=== PATIENT | male | born 1950 | race Two or more races ===

== ENCOUNTER 2020-05-14 14:43 | Inpatient (IN) | payer MEDICARE ==
[~2020-05-14] VITALS: Ht 170.2 cm; Wt 61.7 kg
--- NOTE | 2020-05-14 15:12 | NUR ---
BIB RA FROM HOME,SYNCOPAL EPISODE,WEAKNESS AND (+) ORTHO, FAMILY MEMBERS ARE (+) FOR COVID 19. TO ER BED 16. PLACED IN ISOLATION. PROVIDED W SURGICAL MASK. CHANGED TO HOSP GOWN, HOOKED TO HAT BODY SORTER, BP CUFF AND POX. NOTED TACHY AND LOW BP. NOTED W RAC 18G IVP, PATENT AND FLUSHING. ONGOING 500ML NS HOOKED BY PARAMEDICS. WARM BLANKET PROVIDED. DR FERRARO AT BEDSIDE
[2020-05-14] MEDS ORDERED: IV NS 0.9% 1,000 ML BAG IV ONE ×2 (15:30→17:00)
--- NOTE | 2020-05-14 15:30 | NUR ---
MOVE SHEET SUBMITTED
[2020-05-14 15:54] LABS: BASOPHILS # (AUTO) 0.2 /CMM (0.0-0.2); BASOPHILS % (AUTO) 1.2 % (0.0-2.0); EOSINOPHILS % (AUTO) 0.3 % (0.0-6.0); HEMATOCRIT 40 % (39-51); HEMOGLOBIN 12.6 g/dL (13.5-17.5); LYMPHOCYTES # (AUTO) 0.6 /CMM (0.8-4.8); MEAN CORPUSCULAR HGB CONC 32 g/dl (31.0-36.0); MEAN CORPUSCULAR VOLUME 95 fL (80-96); MONOCYTES # (AUTO) 0.9 /CMM (0.1-1.30); NEUTROPHILS # (AUTO) 10.8 /CMM (1.8-8.9); NEUTROPHILS % (AUTO) 86.5 % (43.0-81.0); PLATELET COUNT (AUTO) 152 /CMM (150-450); RED BLOOD CELL COUNT(AUTO) 4.19 MIL/uL (4.5-6.0); WHITE BLOOD COUNT (AUTO) 12.5 K/uL (4.3-11.0)
[2020-05-14] MEDS ORDERED: CEFTRIAXONE 1GM BAG (ER ONLY) 50 ML IV ONE ×2 (16:30→16:31)
[2020-05-14] MEDS ORDERED: AZITHROMYCIN 500 MG in IV D5W 250 ML IV ONE (16:30)
[2020-05-14] MEDS ORDERED: DEXAMETHASONE SOD PHOSPHATE 10 MG/ML VIAL IV ONE (16:30)
[2020-05-14] MEDS ORDERED: DEXAMETHASONE SOD PHOSPHATE 10 MG/ML VIAL ONE (16:31)
--- NOTE | 2020-05-14 16:44 | NUR ---
COVID 19 SWAB (RAPID AND PCR) DONE AND SENT TO LAB
--- NOTE | 2020-05-14 16:49 | NUR ---
RAPID INFLUENZA SWAB DONE AND SENT TO LAB
[2020-05-14 16:52] LABS: ALANINE AMINOTRANSFERASE 24 U/L (12-78); ALBUMIN 3.2 g/dL (3.4-5.0); ALKALINE PHOSPHATASE 65 U/L (46-116); ASPARTATE AMINOTRANSFERASE 35 U/L (15-37); B-TYPE NATRIURETIC PEPTIDE 165 PG/ML (0-125); BILIRUBIN,TOTAL 0.6 mg/dL (0.2-1.0); CALCIUM, SERUM 9.5 mg/dL (8.5-10.1); CARBON DIOXIDE 19 mmol/L (21-32); CHLORIDE 106 mmol/L (98-107); CREATININE 2.6 mg/dL (0.6-1.3); GLUCOSE 305 mg/dL (74-106); POTASSIUM 3.7 mmol/L (3.5-5.1); SODIUM SERUM 147 mmol/L (136-145); TOTAL PROTEIN, SERUM 7.5 g/dL (6.4-8.2); UREA NITROGEN, BLOOD 23 mg/dL (7-18)
[2020-05-14] MEDS ORDERED: HEPARIN SODIUM, PORCINE 5000 UNITS/1 ML VIAL SQ SCH (17:30)
[2020-05-14] MEDS ORDERED: IV 1/2NS 1000 ML 1,000 ML IV PRN ×2 (17:30→19:17)
[2020-05-14] MEDS ORDERED: ACETAMINOPHEN 325 MG TABLET PO PRN (17:30)
[2020-05-14] MEDS ORDERED: ASPIRIN 325 MG TABLET PO ONE (17:30)
[2020-05-14] MEDS ORDERED: HYDROCODONE/APAP 5/325MG TABLET PO PRN (17:30)
[2020-05-14] MEDS ORDERED: ALBUTEROL SULFATE INH 18 GM HFA.AER.AD IH PRN (17:30)
[2020-05-14] MEDS ORDERED: ONDANSETRON HCL/PF 4 MG/2 ML VIAL IVP PRN (17:30)
[2020-05-14] MEDS ORDERED: MORPHINE SULFATE INJ 2 MG/ML DISP.SYRIN IV PRN (17:30)
[2020-05-14] MEDS ORDERED: MAG HYDROX/AL HYDROX/SIMETH 30 ML UDC PO PRN (17:30)
--- NOTE | 2020-05-14 18:59 | NUR ---
CALLED LAB PT COVID RESULT (+) POSITIVE.
[2020-05-14 19:13] LABS: C-REACTIVE PROTEIN 5.7 mg/dL (0.0-0.9); CREATINE KINASE, TOTAL 342 U/L (39-308)
[2020-05-14 20:00] LABS: BILIRUBIN,DIRECT 0.1 mg/dL (0.0-0.2)
--- NOTE | 2020-05-14 20:25 | NUR ---
PARMINDERROLAN IBARRA - DAUGHTER [phone]
[2020-05-14 20:34] LABS: FERRITIN 1678 ng/mL (8-388)
--- NOTE | 2020-05-14 20:56 | NUR ---
PATIENT IS CURRENTLY ON 4L OF N/C 99% 02 SATURATION. PATIENT IS AAOX4. NO SOB. BREATHING EVENLY AND UNLABORED. PATIENT STATES ," AGUA OR JUICE POR FAVOR".
--- NOTE | 2020-05-14 22:48 | NUR ---
TELE 205-1
--- NOTE | 2020-05-14 23:32 | NUR ---
REPORT GIVEN TO JUSTINE ALICEA FOR GABRIELA.
[2020-05-15] VITALS (33 sets, daily range): BP systolic 32–144; BP diastolic 17–88
--- NOTE | 2020-05-15 | NUR ---
PT ARRIVED TO THE UNIT VIA EDMARRCAROL, A/O X4, PT IS ON 2 L NC SATING 97%, PT HAS UNLABORED BREATHING SAFETY MEASURE IN PLACE.
--- NOTE | 2020-05-15 00:08 | NUR ---
PATIENT TAKEN UP TO ROOM FOR GABRIELA.
[2020-05-15] MEDS: HEPARIN SODIUM, PORCINE 5000 UNITS/1 ML VIAL SQ SCH ×2 (01:44→14:01)
--- NOTE | 2020-05-15 05:48 | NUR ---
received d dimer lab result which is greater than 35.20, dr Collado made aware no order at this time.
--- NOTE | 2020-05-15 07:30 | NUR ---
pt remained stable during my shift,no acute changes report given to incoming nurse for tashi.
--- NOTE | 2020-05-15 07:30 | NUR ---
TELE/RN OPENING NOTE Patient resting in bed, A&O x 4, Malagasy speaking. No complaints of pain/discomfort at this time. Breathing even and non-labored on RA, no SOB noted. No cardiac distress noted. On tele monitor reading, ST 122. IV access noted on LFA #20 g, patent and intact, and flushing well. Sensation from all peripheral extremities intact. Bed locked to its lowest position, side rails x 2 up, call light in hand. Will continue with current medical management.
[2020-05-15 08:27] LABS: BASOPHILS % (AUTO) 0.1 % (0.0-2.0); HEMATOCRIT 34 % (39-51); HEMOGLOBIN 11.4 g/dL (13.5-17.5); LYMPHOCYTES # (AUTO) 0.6 /CMM (0.8-4.8); LYMPHOCYTES % (AUTO) 6.8 % (20.0-44.0); MEAN CORPUSCULAR HGB CONC 34 g/dl (31.0-36.0); MEAN CORPUSCULAR VOLUME 89 fL (80-96); MONOCYTES # (AUTO) 0.7 /CMM (0.1-1.30); MONOCYTES % (AUTO) 7.9 % (2.0-12.0); NEUTROPHILS # (AUTO) 7.9 /CMM (1.8-8.9); NEUTROPHILS % (AUTO) 85.2 % (43.0-81.0); PLATELET COUNT (AUTO) 127 /CMM (150-450); WHITE BLOOD COUNT (AUTO) 9.2 K/uL (4.3-11.0)
[2020-05-15 09:05] LABS: THYROID STIMULATING HORMONE 0.623 uIU/mL (0.358-3.74)
--- NOTE | 2020-05-15 10:04 | NUR ---
TELE/RN NOTE Patient complaining of generalized body pain, yells "03/09 susan lyon." When asked what type of pain he is having, patient unable to describe, states "susan davis duele, pain medication please!" Patient manifests facial grimacing, guarding. Administered morphine 1 mg IV push.
--- NOTE | 2020-05-15 10:30 | NUR ---
TELE/RN NOTE Patient is dozing intermittently, asked if patient still has pain, patient states "no." Easily arousable to touch and verbal stimulation. Will continue to monitor patient's progression of pain.
--- NOTE | 2020-05-15 10:45 | NUR ---
TELE/RN NOTE Patient found unresponsive with palpable weak pulses, unable to respond to touch and verbal stimulation. VS taken: 144/78, HR 77, RR 10, O2 saturation 62% on RA, on tele monitor reading sinus rhythm 77. BS 127. Placed patient on non-rebreather on 15L oxygen and called rapid response. Patient is full code. Madi Thomas, and Jaleel (respiratory therapists), [facility] INDUSTRIAL SERVICE TECHNICIAN, and Nakul Lyons, HELMET HAT SWEATBAND PUNCHER arrived at 1048 to assess patient. Nakul Lyons HELMET HAT SWEATBAND PUNCHER ordered to intubate patient. Dr. Sharee Almanza arrived at 1100 for intubation, propofol in at 1110, intubation process started at 1113. During intubation, patient seizes for 5 seconds manifested with jerking movements on the arms and legs. Administered lorazepam 2mg IV as ordered by Nakul Lyons NP. Patient placed on ventilator, and transferred safely for CT head. Addendum: 05/15/20 at 1545 by CHAZ WEEKS RN No family/relative known on the face sheet. Unable to notify. Addendum: 05/15/20 at 1548 by CHAZ WEEKS RN In addition to above, patient's saturation went up to 90% upon ventilation.
[2020-05-15] MEDS ORDERED: LORAZEPAM INJ 2 MG/ML VIAL IV STA (11:10)
[2020-05-15] MEDS ORDERED: LORAZEPAM INJ 2 MG/ML VIAL IV PRN (11:30)
[2020-05-15] MEDS ORDERED: PROPOFOL 100 ML IV PRN (11:30)
--- NOTE | 2020-05-15 12:15 | NUR ---
CHANGE NUMBER OPERATOR RECEIVED PT FROM MS2 AFTER CT SCAN. PT TRANSPORTED BY BED WITH MONITOR. REPORT RECEIVED FROM MS2 RN. NEW IV SITES STARTED IN BLE. F/C PLACED WITH NO URINE OUTPUT SEEN. NGT PLACED, POSITION VERIFIED BY AUSCULTATION AND ASPIRATION OF GASTRIC CONTENTS WITH SYRINGE. ETT TUBE ADJUSTED BY RT. 7.5F ETT NOW AT 22 AT THE LIP. WILL DRAW FOLLOW UP ABG.
--- NOTE | 2020-05-15 12:30 | NUR ---
TELE/RN NOTE Patient safely transferred to ICU ROOM 265, gave report to NIXON Guardado for GABRIELA.
--- NOTE | 2020-05-15 12:45 | NUR ---
RT NOTE rapi response called into patient room. patient intubated by dr. sawyer. ett 7.5 @ 26cm then adjusted to 22cm per dr. bro. ett secured and in place. vent alarms on and audible. vent plugged in red outlet. will continue to monitor. abg pending
[2020-05-15] MEDS ORDERED: PROPOFOL 200 MG/20 ML VIAL IV ONE (13:12)
[2020-05-15 13:28] LABS: ALBUMIN 3.2 g/dL (3.4-5.0); BILIRUBIN,TOTAL 0.3 mg/dL (0.2-1.0); CREATININE 3.1 mg/dL (0.6-1.3); MAGNESIUM 2.6 mg/dL (1.8-2.4); PHOSPHORUS 4.9 mg/dL (2.5-4.9); POTASSIUM 5.8 mmol/L (3.5-5.1); TOTAL PROTEIN, SERUM 6.9 g/dL (6.4-8.2)
[2020-05-15] MEDS ORDERED: IV D5/ 0.9% NACL 1,000 ML IV PRN (13:30)
[2020-05-15] MEDS: NOREPINEPHRINE 8 MG in IV NS 0.9% 242 ML IV PRN ×2 (13:46→20:59)
[2020-05-15] MEDS ORDERED: IV NS 0.9% 500 ML BAG IV ONE (14:00)
[2020-05-15 15:13] LABS: ABG BASE EXCESS -25.5 mmol/L; ABG OXYGEN SATURATION 99.5 % (92.0-98.5); ABG PCO2 23.2 mmHg (35.0-45.0); ABG PH 6.954 (7.350-7.450); ABG PO2 486.9 mmHg (75.0-100.0); AaDO2 202.9 mmHg; COHb 0.2 % (0.5-1.5); MetHb 0.3 % (0.0-1.5); SITE, ABG Right Femoral; VENT MODE, BG AC 20 500 100%
[2020-05-15] MEDS ORDERED: SODIUM BICARBONATE SYR 50 MEQ/50 ML DISP.SYRIN IV ONE (15:30)
[2020-05-15] MEDS: HYDROCORTISONE SOD SUCCINATE 100 MG/2 ML VIAL IV SCH ×2 (16:20→20:15)
[2020-05-15] MEDS ORDERED: AZITHROMYCIN 500 MG in IV D5W 250 ML IV SCH (16:30)
[2020-05-15] MEDS ORDERED: DEXAMETHASONE SOD PHOSPHATE 10 MG/ML VIAL IV SCH (16:30)
[2020-05-15] MEDS ORDERED: CEFTRIAXONE 1 G in IV D5W 50 ML IV SCH (17:00)
[2020-05-15] MEDS: Sodium Bicarbonate 150 MEQ in IV D5W 1,000 ML IV PRN (17:35)
[2020-05-15] MEDS: PHENYLEPHRINE 50 MG in IV NS 0.9% 245 ML IV PRN (18:22)
--- NOTE | 2020-05-15 19:30 | NUR ---
RN NOTES RECEIVED PATIENT IN BED INTUBATED VENT, VENT SETTING TOLERATING WELL ORDERED. TELE MONITOR READING SR/ST. RESPIRATION EVEN. IV SITES INTACT PATENT FLUSHED WELL. NGT TUBE IN PLACE, VERIFIED VIA AUSCULTATION. F/C INTACT NO URINE OUT PUT NOTED. SAFETY MEASURES IN PLACE, SIDE RAILS UP CALL LIGHT WITHIN REACH. WILL CONT TO MONITOR FOR GABRIELA.
[2020-05-15 20:21] LABS: ABG BASE EXCESS -20.9 mmol/L; ABG OXYGEN SATURATION 98.5 % (92.0-98.5); ABG PH 7.119 (7.350-7.450); ABG PO2 151.1 mmHg (75.0-100.0); AaDO2 181.8 mmHg; COHb 0.3 % (0.5-1.5); MetHb 0.3 % (0.0-1.5); O2Hb 97.9 % (94.0-97.0); SITE, ABG Right Brachial; VENT MODE, BG AC 20 500 50% +0
--- NOTE | 2020-05-15 20:33 | NUR ---
ALLISON'S DONE RELAYED TO DR. LOBO NNO. WILL CONT TO MONITOR.
--- NOTE | 2020-05-15 22:04 | NUR ---
RECEIVED CALL FROM LAB TALKED TO VEENCE REGARDING TROPONIN LEVEL 1.970, RELAYED TO DR. ROMY NOVAK. WILL CONT TO MONITOR.
[2020-05-15 23:38] LABS: ALBUMIN 2.5 g/dL (3.4-5.0); BILIRUBIN,TOTAL 0.7 mg/dL (0.2-1.0); CALCIUM, SERUM 8.2 mg/dL (8.5-10.1); CREATININE 5.1 mg/dL (0.6-1.3); MAGNESIUM 3.9 mg/dL (1.8-2.4); TOTAL PROTEIN, SERUM 6.1 g/dL (6.4-8.2)
[2020-05-15] MEDS ORDERED: VASOPRESSIN INJ 20 UNIT/ML VIAL ONE (23:46)
--- NOTE | 2020-05-15 23:46 | NUR ---
RECEIVED CALL FROM LAB TALKED TO BRI REGARDING K+ 6.7,CO2-9, PHOSPHORS-16.[address] STANTON NEW ORDER RECEIVED NOTED AND CARRIED OUT. WILL CON TO MONITOR.
[2020-05-16] VITALS (42 sets, daily range): BP systolic 45–226; BP diastolic 16–162
[2020-05-16 00:06] LABS: PHOSPHORUS 16.2 mg/dL (2.5-4.9); POTASSIUM 6.7 mmol/L (3.5-5.1)
[2020-05-16] MEDS: VASOPRESSIN INJ 40 UNIT in IV NS 0.9% 38 ML IV PRN ×2 (00:06→15:12)
[2020-05-16] MEDS ORDERED: SODIUM BICARBONATE SYR 50 MEQ/50 ML DISP.SYRIN IV STA (00:11)
[2020-05-16] MEDS ORDERED: INSULIN REGULAR, HUMAN 100 UNIT/ML 3 ML VIAL IV STA (00:11)
[2020-05-16] MEDS ORDERED: NOREPINEPHRINE 4 MG/4 ML AMPUL IV ONE ×3 (00:15→05:47)
[2020-05-16] MEDS: NOREPINEPHRINE 8 MG in IV NS 0.9% 242 ML IV PRN ×3 (00:25→06:19)
[2020-05-16] MEDS: PHENYLEPHRINE 50 MG in IV NS 0.9% 245 ML IV PRN ×2 (01:17→05:24)
[2020-05-16] MEDS ORDERED: INSULIN REGULAR, HUMAN 100 UNIT/ML 3 ML VIAL ONE (01:40)
[2020-05-16] MEDS: Sodium Bicarbonate 150 MEQ in IV D5W 1,000 ML IV PRN ×2 (02:00→09:38)
[2020-05-16] MEDS: HEPARIN SODIUM, PORCINE 5000 UNITS/1 ML VIAL SQ SCH ×2 (02:02→14:00)
[2020-05-16 03:28] LABS: BASOPHILS # (AUTO) 0.5 /CMM (0.0-0.2); BASOPHILS % (AUTO) 2.1 % (0.0-2.0); EOSINOPHILS % (AUTO) 1.8 % (0.0-6.0); HEMATOCRIT 31 % (39-51); HEMOGLOBIN 9.3 g/dL (13.5-17.5); LYMPHOCYTES # (AUTO) 1.1 /CMM (0.8-4.8); LYMPHOCYTES % (AUTO) 4.5 % (20.0-44.0); MEAN CORPUSCULAR HGB CONC 30 g/dl (31.0-36.0); MEAN CORPUSCULAR VOLUME 98 fL (80-96); MONOCYTES # (AUTO) 0.4 /CMM (0.1-1.30); MONOCYTES % (AUTO) 1.7 % (2.0-12.0); NEUTROPHILS # (AUTO) 21.6 /CMM (1.8-8.9); NEUTROPHILS % (AUTO) 89.9 % (43.0-81.0); PLATELET COUNT (AUTO) 141 /CMM (150-450); RED BLOOD CELL COUNT(AUTO) 3.19 MIL/uL (4.5-6.0)
[2020-05-16 03:45] LABS: CALCIUM, SERUM 6.9 mg/dL (8.5-10.1); CREATININE 5.7 mg/dL (0.6-1.3); MAGNESIUM 3.7 mg/dL (1.8-2.4); POTASSIUM 5.7 mmol/L (3.5-5.1)
[2020-05-16 03:52] LABS: PHOSPHORUS 17.2 mg/dL (2.5-4.9)
--- NOTE | 2020-05-16 04:17 | NUR ---
RT NOTE Pt rec'd orally intubated via ETT 7.5 secured @ 22cm at the lipline. Pt on [facility] vent on AC mode settings as charted. Pt sx'd for thick small amt of pale yellow secretions. Alarms are set and audible. Ambu bag bedside. Vent plugged into red outlet. Will continue to monitor closely. Addendum: 05/16/20 at 0418 by JAREK WILDER RT Amended: Links added.
[2020-05-16] MEDS ORDERED: PHENYLEPHRINE 10 MG/ML VIAL ONE (05:07)
[2020-05-16 06:12] LABS: ABG BASE EXCESS -20.2 mmol/L; ABG OXYGEN SATURATION 98.6 % (92.0-98.5); ABG PCO2 19.9 mmHg (35.0-45.0); ABG PO2 163.1 mmHg (75.0-100.0); COHb 0.2 % (0.5-1.5); MetHb 0.1 % (0.0-1.5); O2Hb 98.3 % (94.0-97.0); SITE, ABG Right Radial; VENT MODE, BG AC 20 500 50%
--- NOTE | 2020-05-16 07:15 | NUR ---
STEAM AND POWER SUPERINTENDENT NOTES RECEIVED PATIENT UNRESPONSIVE , GAG / COUGHING REFLEX AND BOWEL SOUND ABSENT , ON VENT SETTINGS OF AC 250 TV 500 FIO2 50% PEEP OF 0 SPO2 OF 80-85% , ETT 7.5/ IN PLACE , ST 105 ON BEDSIDE MONITOR , FC DRIANING VIA GRAVITY , NG NOTED WITH DARK OUTPUT MODERATE IN AMOUNT ATTACHED TO LOW INTERMITTENT SUCTION , RIGHT FEMORAL TLC WITH LEVO @ 1MCG/KG/MIN , NEOSYNPERINE @ 3MCG/KG/MIN , VASOPRESSIN TITRATED TO 0.04U/HR INFUSING WELL , D5W WITH 150 MEQ NAHOC3@ 150ML/HR INFUSING WELL , RECTAL PROBE ATTACHED PT NOTED TO HAVE 93.5 TEMP , SATISH HUGGER APPLIED , SKIN COOL TO TOUCH , DISTAL FOOT AND HANDS CYANOTIC , WILL CONTINUE TO MONITOR .
[2020-05-16 08:04] LABS: PTH, INTACT 104 pg/mL (15-65)
[2020-05-16] MEDS: HYDROCORTISONE SOD SUCCINATE 100 MG/2 ML VIAL IV SCH ×2 (08:14→13:19)
[2020-05-16] MEDS: NOREPINEPHRINE 32 MG in IV NS 0.9% 218 ML IV PRN ×2 (08:45→17:23)
[2020-05-16] MEDS: PHENYLEPHRINE 100 MG in IV NS 0.9% 240 ML IV PRN ×2 (09:39→17:23)
[2020-05-16] MEDS ORDERED: SODIUM POLYSTYRENE SULFONATE 15 G/60 ML BOTTLE PO ONE (10:00)
--- NOTE | 2020-05-16 10:17 | NUR ---
MEAT SPECIALIST NOTES DR MULLIGAN AND DR LANCE SEEN AND EVALUATED THE PT , DISCUSSED LABS , CHEST XRAY AND PT CURRENT STATUS , PATIENT UNRESPONSIVE , GAG / COUGHING REFLEX AND BOWEL SOUND ABSENT , ON VENT SETTINGS OF AC 250 TV 500 FIO2 50% PEEP OF 0 SPO2 OF 80-85% , ETT 7.5/ IN PLACE , ST 105 ON BEDSIDE MONITOR , FC DRAINING VIA GRAVITY , NG NOTED WITH DARK OUTPUT MODERATE IN AMOUNT ATTACHED TO LOW INTERMITTENT SUCTION , RIGHT FEMORAL TLC WITH LEVO @ 1MCG/KG/MIN , NEOSYNPERINE @ 3MCG/KG/MIN , VASOPRESSIN TITRATED TO 0.04U/HR INFUSING WELL , D5W WITH 150 MEQ NAHOC3@ 150ML/HR INFUSING WELL , RECTAL PROBE ATTACHED PT NOTED TO HAVE 94.2 TEMP , SATISH HUGGER APPLIED , SKIN COOL TO TOUCH , DISTAL FOOT AND HANDS CYANOTIC , MD AWARE .
--- NOTE | 2020-05-16 10:24 | NUR ---
GYMNASTIC COACH NOTES SEEN AND EVALUATED BY DR CONTEH DISCUSSED LABS , ABG , CHEST XRAY , PATIENT UNRESPONSIVE , GAG / COUGHING REFLEX AND BOWEL SOUND ABSENT , ON VENT SETTINGS OF AC 250 TV 500 FIO2 50% PEEP OF 0 SPO2 OF 68% , ETT 7.5/ IN PLACE , ST 105 ON BEDSIDE MONITOR , FC DRIANING VIA GRAVITY , NG NOTED WITH DARK OUTPUT MODERATE IN AMOUNT ATTACHED TO LOW INTERMITTENT SUCTION , RIGHT FEMORAL TLC WITH LEVO @ 1MCG/KG/MIN , NEOSYNPERINE @ 3MCG/KG/MIN , VASOPRESSIN TITRATED TO 0.04U/HR INFUSING WELL , D5W WITH 150 MEQ NAHOC3@ 150ML/HR INFUSING WELL , RECTAL PROBE ATTACHED PT NOTED TO HAVE 94.3 TEMP , SATISH HUGGER APPLIED , SKIN COOL TO TOUCH , DISTAL FOOT AND HANDS CYANOTIC , PER MD CHECK CVP IF CVP IS BELOW 10 GIVE 500ML BOLUS .,
--- NOTE | 2020-05-16 10:32 | NUR ---
GENERATOR OPERATOR STRAIGHT BEVEL GEAR NOTES VERIFIED WITH DR LANCE THE KAYEXALATE ORDER PT IN ON LOW INTERMITTENT SUCTION DUE TO HIGH GASTRIC CONTENTS , PER MD HOLD IT FOR NOW , VERIFY WITH NEPHRO , FARRAH ALCAZAR'S NUMBER TO DISCUSS PLAN OF CARE
--- NOTE | 2020-05-16 10:56 | NUR ---
jennifer cordero in icu informed of (+) pcr
--- NOTE | 2020-05-16 14:24 | NUR ---
DRAWER IN PLAIN LOOM NOTES NOTIFIED DR LANCE REGARDING PT COVID PCR RESULTS WHICH IS POSITIVE UPDATED DAUGHTER @ 1400 REGARDING PT STATUS , PER DAUGHTER SHE WANTS TO SPEAK WITH THE DR REGARDING PLAN OF CARE RECEIVED A CALL FROM DR LANCE PER MD SHE SPOKE WITH THE SEGUN STAUFFERGADO DAUGHTER AGREES TO DO DNR , ORDER CARRIED OUT WITNESS BY YUN ALICEA , DR MULLIGAN NOTIFIED ,
[2020-05-16] MEDS ORDERED: CEFEPIME 2 GM in IV D5W 100 ML IV SCH (15:00)
--- NOTE | 2020-05-16 15:04 | NUR ---
TIMBER SIZER NOTES HEPARIN SQ HELD , PT NOTED TO HAVE DARK OUTPUT VIA NGT MODERATE IN AMOUNT , DR LANCE AWARE
[2020-05-16] MEDS ORDERED: VANCOMYCIN 1 GM in IV D5W 250 ML IV SCH (16:00)
[2020-05-16 16:11] LABS: *SPE A/G RATIO 0.8 (0.7-1.7); *SPE ALBUMIN 2.8 g/dL (2.9-4.4); *SPE ALPHA-1-GLOBULIN 0.4 g/dL (0.0-0.4); *SPE BETA GLOBULIN 1.1 g/dL (0.7-1.3); *SPE GLOBULIN, TOTAL 3.3 g/dL (2.2-3.9); *SPE M-SPIKE Not Observed g/dL (Not Observed); *SPEGAMMA GLOBULIN 0.8 g/dL (0.4-1.8)
--- NOTE | 2020-05-16 17:15 | NUR ---
CERTIFIED CAREGIVER NOTES PAGED DR LANCE THAT ZOOM MEETING DONE WITH THE FAMILY , PER DAUGHTER PARMINDER SHE WANTS TO DO COMFORT CARE , AWAITING FOR CALL BACK
--- NOTE | 2020-05-16 17:53 | NUR ---
MANAGER ACCESS NOTES RECEIVED A CALL FROM DR LANCE , NOTIFIES THAT PT @ 1753 MD AWARE PT AT 1725 PRONOUNCED BY SANDER RN , ASYSTOLE , NO BP , NO AUDIBLE HEART TONES , PULSES ABSENT , VENTILATOR TURNED OFF , NOTIFIED DR LANCE , ADMITTING MELODY , NURSING FILLING LAYER UP SUE , NO CODE CALLED PT IS DNR ,
--- NOTE | 2020-05-16 17:53 | NUR ---
FOOD PORTER NOTES CALLED DAUGHTER PARMINDER TO NOTIFY THAT HER DAD @ 175 , DAUGHTER AWARE , CALM AT THIS TIME , NO MORTUARY AVAILABLE PER DAUGHTER AT THIS TIME ,
--- NOTE | 2020-05-16 18:30 | NUR ---
NET DEVELOPER SOFTWARE ENGINEER C NOTES [facility] CALLED , BODY OK TO BE RELEASE ,
--- NOTE | 2020-05-16 18:45 | NUR ---
LABORATORY ANIMAL CARE VETERINARIAN NOTES DOUBLE BAGGED THE PT PER INFECTION CONTROL PROTOCOL , BELONGING LIST CHECKED , TAGS AND LABELED APPLIED TO PT , SPOKE WITH PARMINDER DAUGHTER , PER DAUGHTER THEY DONT HAVE ANY MORTUARY AT THIS TIME , CONSENT GIVEN BY DAUGHTER TO RELEASE BODY TO MORTUARY , TRANSFER BODY TO [facility] WITH 2 SECURITY PERSONNEL , SENT BELONGINGS WITH THE PT BODY .
== END 2020-05-16 19:00 | disposition home or self-care (01) | DRG 871 ==
LOC: ER 14:52 → TELE2 23:12 → ICU 05-15 12:28
PROVIDERS: ADMIT Nurse Practitioner Acute Care; ATTEND Student in an Organized Health Care Education/Training Program
PROC: 5A1945Z Respiratory Ventilation, 24-96 Consecutive Hours (ICD-10-PCS; principal; 2020-05-15)
PROC: 0BH18EZ Insertion of Endotracheal Airway into Trachea, Via Natural or Artificial Opening Endoscopic (ICD-10-PCS; 2020-05-15)
PROC: 02HV33Z Insertion of Infusion Device into Superior Vena Cava, Percutaneous Approach (ICD-10-PCS; 2020-05-16)
PROC: B548ZZA Ultrasonography of Superior Vena Cava, Guidance (ICD-10-PCS; 2020-05-16)
DX: A41.89 Other specified sepsis (principal); U07.1 COVID-19; N17.0 Acute kidney failure with tubular necrosis; J12.89 Other viral pneumonia; Z66 Do not resuscitate; Z51.5 Encounter for palliative care; I21.A1 Myocardial infarction type 2; J96.01 Acute respiratory failure with hypoxia; G93.41 Metabolic encephalopathy; R65.21 Severe sepsis with septic shock; J15.9 Unspecified bacterial pneumonia; D68.59 Other primary thrombophilia; E44.1 Mild protein-calorie malnutrition; E87.2 Acidosis; R73.9 Hyperglycemia, unspecified; Z74.09 Other reduced mobility; E86.1 Hypovolemia; I95.1 Orthostatic hypotension; G93.89 Other specified disorders of brain; F43.9 Reaction to severe stress, unspecified; R56.9 Unspecified convulsions; E87.5 Hyperkalemia; E86.0 Dehydration
CPT/HCPCS: 31720; 36415; 36600; 70450-TC; 71045-TC; 80048-TC; 80053-TC; 80061-TC; 82248-TC; 82533; 82550-TC; 82553; 82728-TC; 82803-TC; 82962-TC; 83605-TC; 83615-TC; 83735-TC; 83880; 83970; 84100-TC; 84155; 84165; 84443-TC; 84484-TC; 85025-TC; 85378-TC; 85730-TC; 86140-TC; 87040-TC; 87081-TC; 93307-TC; 94002-TC; 94003-TC; 94799-TC; 95819-TC; 99082-TC; A6403; C1751; C9803; G0378; J0456; J0692; J0696; J1100; J1644; J1720; J1815; J2060; J2270; J2370; J2704; J3370; J3490; J7030; J7040; J7042; J7050; J7060; J7070; U0003